=== PATIENT | female | born 1970 | race Caucasian/White ===

== ENCOUNTER 2020-02-08 08:53 | Emergency (ER) | payer OTHER, SELFPAY ==
--- NOTE | 2020-02-08 08:58 | ED.GENADULT ---
HPI - General Adult General Chief complaint: Upper Respiratory Infection Stated complaint: Ear pain,allergies Time Seen by Provider: 02/08/20 08:56 Source: patient Mode of arrival: ambulatory Limitations: no limitations History of Present Illness HPI narrative: 49-year-old female patient presents to the [facility] with complaints of right ear pain that started yesterday. Patient states that her ear is swollen shut and is very painful. Patient states she tried putting on some eardrops into the ear that she had at home but states that the eardrops would not go into the fact that the ear was very swollen. Denies any fevers, body aches or chills. Patient states she has had allergies for the past 2 weeks that she has been taking Singulair and [id number] Claritin for. Related Data Allergies Allergy/AdvReac Type Severity Reaction Status Date / Time ciprofloxacin Allergy Unknown Hives / Verified 02/08/20 09:01 Red Face Review of Systems Review of Systems: Narrative: CONSTITUTIONAL: Denies fever, chills, or sweats. EYES: Denies visual changes, redness, or discharge. ENT: Denies rhinorrhea, congestion, sore throat, positive right otalgia. CARDIOVASCULAR: Denies chest pain, palpitations, or edema. RESPIRATORY: Denies cough or dyspnea. GASTROINTESTINAL: Denies abdominal pain, nausea, vomiting, or diarrhea. GENITOURINARY: Denies dysuria or hematuria. SKIN: Denies rash or itching. MUSCULOSKELETAL: Denies back pain, joint pain, or myalgia. NEUROLOGIC: Denies headache, numbness, or weakness. PSYCHIATRIC: Denies anxiety or depression. PMFSH Past Medical History Medical History (Updated 02/08/20 @ 09:19 by JUNAID Glover) Depression Hypertension Hypothyroidism Seasonal allergies Surgical History Surgical History (Updated 02/08/20 @ 08:59 by JUNAID Glover) H/O tubal ligation Social History Social History (Updated 02/08/20 @ 08:59 by JUNAID Glover) Smoking status: Current every day smoker Comments At the time of my signature I agree with nursing past medical history, surgical, social, and family history. There is no relevant family history pertinent to the presenting complaint. Exam Narrative: Exam Narrative: GENERAL: Well-appearing, well-nourished, and in no acute distress. HEAD: Normocephalic, atraumatic. EYES: PERRLA and EOMI. ENT: Nares clear, no rhinorrhea or epistaxis. Mucous membranes moist. Left ear canal is clear with no erythema or foreign bodies in the canal. The right canal is completely swollen shut and unable to visualize the TM. There is slight swelling and tenderness to the preauricular lymph node. NECK: Supple. No lymphadenopathy CHEST: Clear to auscultation. No respiratory distress. HEART: Regular rate and rhythm. No murmur heard. Normal peripheral pulses. ABDOMEN: Soft, nontender, nondistended, normal active bowel sounds. EXTREMITIES: Normal range of motion. No edema. SKIN: Warm, dry, no rash. NEURO: No focal deficits. Alert and oriented x3. Course Vital Signs Vital signs: Vital Signs Temperature 37.0 C 02/08/20 09:00 Pulse Rate 95 02/08/20 09:00 Respiratory Rate 18 02/08/20 09:00 Blood Pressure 141/82 H 02/08/20 09:00 Pulse Oximetry 98 02/08/20 09:00 Temperature 37.0 C 02/08/20 09:00 Pulse Rate 95 02/08/20 09:00 Respiratory Rate 18 02/08/20 09:00 Blood Pressure 141/82 H 02/08/20 09:00 Pulse Oximetry 98 02/08/20 09:00 Vital signs reviewed The patient has been informed that they may have pre-hypertension or Hypertension based on a BP reading in the department. I recommend that the patient call the primary care provider listed on their discharge instructions or a physician of their choice this week to arrange follow up for further evaluation of possible pre-hypertension or Hypertension Medical Decision Making Differential Diagnosis Differential Diagnosis: Differential diagnosis: Otitis media, otitis externa, perforated TM, inf
[2020-02-08 09:00] VITALS: BP 141/82; PULSE 95; RESP 18; TEMP 37; O2SAT 98
== END 2020-02-08 09:38 | disposition home or self-care (01) ==
PROVIDERS: Emergency Provider Nurse Practitioner Family; PCP Family Medicine
DX: H60.501 Unspecified acute noninfective otitis externa, right ear (principal); F17.210 Nicotine dependence, cigarettes, uncomplicated; I10 Essential (primary) hypertension; E03.9 Hypothyroidism, unspecified
CPT/HCPCS: 99203; G0463

== ENCOUNTER 2024-09-05 12:50 | Emergency (ER) | payer OTHER, SELFPAY ==
--- OUTSIDE RECORDS SUMMARY | 2024-09-05 13:01 | XMS_ITS | Clinical Summary ---
Author Organization [facility] Address [address] [place] [address] Phone Care Team Providers Care Book Publisher Name Role Phone Jeremy Roth MD Primary Care Provider [phone] Allergies Active Allergy Reactions Criticality Noted Date Comments Ciprofloxacin Hives 02/08/2020 Medications methylPREDNISol one (MEDROL DOSPACK) 4 MG Tablet Therapy Pack See product package insert for dosing schedule 21 Tab 02/08/2020 Active HYDROcodone-juan carlos taminophen (NORCO) 5-325 MG Tablet Take 1 Tab by mouth every 6 hours as needed for Moderate or more severe pain. 15 Tab 02/08/2020 Active Social History Tobacco Use Types Packs/Day Years Used Date Smoking Tobacco: Every Day Cigarettes Smokeless Tobacco: Never Alcohol Use Standard Drinks/Week Comments Not Currently 0 (1 standard drink = 0.6 oz pur e alcohol) Comments No Sex and Gender Information Value Date Recorded Sex Assigned at Not on file Legal Sex Female 8:04 PM CDT Gender Identity Not on file Sexual Orientation Not on file Last Filed Vital Signs Vital Sign Reading Time Taken Comments Blood Pressure 145/82 02/08/2020 11:24 AM HOME HEALTH CARE CASE MANAGER Pulse 82 02/08/2020 11:24 AM HOME HEALTH CARE CASE MANAGER Temperature 37.6 C (99.7 F) 02/08/2020 10:24 AM HOME HEALTH CARE CASE MANAGER Respiratory Rate 18 02/08/2020 11:24 AM HOME HEALTH CARE CASE MANAGER Oxygen Saturation 98% 02/08/2020 11:24 AM HOME HEALTH CARE CASE MANAGER Inhaled Oxygen Concentration - - Weight 72.6 kg (160 lb) 02/08/2020 10:24 AM HOME HEALTH CARE CASE MANAGER Height 166.4 cm (5' 5.5) 02/08/2020 10:24 AM CS T Body Mass Index 26.22 02/08/2020 10:24 AM HOME HEALTH CARE CASE MANAGER Plan of Treatment Health Maintenance Due Date Last Done Comments Hepatitis C Virus (HCV) Screening 1972 TdaP Immunization 1972 Hepatitis B Immunization (1 of 3 - 19+ 3-dose series) 10/20/1991 Cologuard 2017 Colonoscopy 2017 Colorectal Cancer Screening 2017 Immunochemical Fecal Occult Blood 2017 Pneumococcal Immunization (5 0+ years) (1 of 1 - PCV) 2022 Zoster Immunization (1 of 2) 2022 SARS-COV-2 Immunization (1 - season) 2023 Influenza Immunization (Seas on Ended) 2024 Respiratory Syncytial Virus (RSV) Immunization (Adult) (1 - 1-dose 75+ series) 10/20/2047 Human Papillomavirus (HPV) Immunization Aged Out No longer eligible b ased on patient's age to complete this topic Meningococcal Immunization (ACWY) Aged Out No longer eligible based on patient's age to complete this topic Rotavirus Immunization Aged Out No lo nger eligible based on patient's age to complete this topic Care Teams Book Publisher Relationship Specialty Start Date End Date Jeremy Roth MD [address] [place] [address] PCP - General Internal Medicine 02/08/20
--- OUTSIDE RECORDS SUMMARY | 2024-09-05 13:01 | XMS_ITS | Encounter Summary ---
Author Organization [facility] Healthcare Address [address] [place] [address] Care Team Providers Care Freedom Of Information Officer Name Role Phone Jeremy Roth MD Primary Care Provider [phone] Reason for Visit * Reason Onset Date Comments Scheduling Appointments 01/16/2021 Confirmi ng mammogram appt Encounter Details Date Type Department Care Team (Late st Contact Info) Description 01/16/2021 Telephone [facility] [address] [place] [id number] Hallie Lynne RT Scheduling Appointments (Confirming mammogram appt) Social History Tobacco Use Types Packs/Day Years Used Date Smoking Tobacco: Heavy Smoker Cigarettes Smokeless Tobacco: Never Comments:Smoking History Pac ks/day: 1 Packs Alcohol Use Standard Drinks/Week Comments No 0 (1 standard drink = 0.6 oz pur e alcohol) PHQ-2 Answer Date Recorded PHQ-2 Total Score (If total score is 3 or more points, staff should administer the PHQ-9) 0 08/25/2020 Comments No Sex and Gender Information Value Date Recorded Sex Assigned at Not on file 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 Author [facility] No Liang Isabel, RN Note: Walk, do normal work, take care of home with minimal to no pain. Attend meditation or other stress management classes Lifestyle No Salima Patel MA Quit using tobacco (cigarettes, smokeless, etc) Tobacco Use No Salima Patel MA documented as of this encounter Visit Diagnoses Not on filedocumented in this encounter Additional Health Concerns Infection Onset Date Last Indicated Resolved Time COVID: Suspected 05/07/2023 05/07/2023 05/07/2023 7:49 PM [employer] DEVELOPER COVID19 05/07/2023 05/07/2023 05/17/2023 3:05 AM [employer] BI DEVELOPER COVID: Recovered Comment:Added based on recent COVID infection. 05/17/2023 05/30/2023 08/15/2023 3:05 AM CDT documented as of this encounter Care Teams Freedom Of Information Officer Relationship Specialty Start Date End Date Jeremy Roth MD [address] [place] [address] PCP - General 08/05/16 documented as of this encounter
--- OUTSIDE RECORDS SUMMARY | 2024-09-05 13:01 | XMS_ITS | Encounter Summary ---
Author Organization [facility] Healthcare Address [address] [place] [address] Care Team Providers Care Mangle Tender Cloth Name Role Phone Jeremy Roth MD Primary Care Provider [phone] Reason for Visit * Reason Onset Date Comments Anxiety 07/14/2024 Encounter Details Date Type Department Care Team (Late st Contact Info) Description 08/10/2024 Nurse Triage [facility] [address] [address] Jeremy Roth MD [address] [place] [address] Social History Tobacco Use Types Packs/Day Years Used Date Smoking Tobacco: Heavy Smoker Cigarettes Smokeless Tobacco: Never Comments:Smoking History Pac ks/day: 1 Packs Alcohol Use Standard Drinks/Week Comments No 0 (1 standard drink = 0.6 oz pur e alcohol) AUDIT-C Answer Date Recorded Q1: How often do you have a drink containing alc ohol? Never 02/27/2021 Average Number of Drinks Not on file 021 Frequency of Binge Drinking Not on file 08/2020 PHQ-2 Answer Date Recorded PHQ-2 Total Score (If total score is 3 or more points, staff should administer the PHQ-9) 0 02/17/2024 Personal Safety Answer Date Recorded Have you ever been in or are you currently in a harmful physical or emotional relationship or is someone making you feel afraid or unsafe? 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 Thanks * Telephone Encounter - Johanny Kauffman RN - 08/10/2024 11:28 AM CDT Reason for Conversation Anxiety Background Aortic Valve Stenosis, HTN and Anxiety Disposition See Within 3 Days in Office Reason for Disposition MODERATE anxiety (e.g., persistent or frequent anxiety symptoms; interferes with sleep, school, or work) Protocols Used Anxiety and Panic [id number] Pt is a 53 y.o female calling with increased anxiety x 1 month that is worsening. Pt reports increased palpitations and SOB. Denies chest pain. Pt states she has Aortic Valve Stenosis and had a recent Echo and was told she will need a cardiac cath and surgery. Pt states she is worried and overwhelmed waiting to get appts scheduled. Pt states she is also trying to stop smoking. Pt declines appt and is requesting Ativan. Please contact pt at [phone]. Please call Rx to [phone]. Care advice given including utilizing healthy coping skills, increased fluids, healthy diet and adequate sleep. Pt verbalized understanding and will call with worsening sx's. * Telephone Encounter - Johanny Kauffman RN - 08/10/2024 11:18 AM CDT Regarding: anxiety with difficulty breathing with sob ----- Message from Janette Linares sent at 08/10/2024 11:18 AM CDT ----- Symptom Based Call Chief Complaint(s): anxiety with difficulty breathing with sob Duration: last month What type of symptom(s) is the patient experiencing? Red Flag. Is the patient concerned they are experiencing a medical emergency requiring an ambulance? No Additional Comments: Pt called and stated that she in having anxiety and experiencing difficulty breathing. Pt stated that she was given atavan at the hospital and this helped. Pt stated that she is stressed regarding needs for surgery Does message need to be routed? Yes-Action Needed documented in this encounter Plan of Treatment Not on file documented as of this encounter Goals Goal Patient Goal Type Associated Problems Recent Progress Patient-Stated? Author [facility] No Liang Isabel, YUMIKO Note: Walk, do normal work, take care of home with minimal to no pain. Attend meditation or other stress management classes Lifestyle No Salima Patel MA Quit using tobacco (cigarettes, smokeless, etc) Tobacco Use No Salima Patel MA documented as of this encounter Visit Diagnoses Not on filedocumented in this encounter Care Teams Mangle Tender Cloth Relationship Specialty Start Date End Date Jeremy Roth MD [address] [place] [address] PCP - General 08/05/16 documented as of this encounter
--- OUTSIDE RECORDS SUMMARY | 2024-09-05 13:01 | XMS_ITS | Clinical Summary ---
Author Organization [facility] Address [address] [place] [id number] Care Team Providers Care Cook Pie Name Role Phone Jeremy Roth MD Primary Care Provider [phone] Allergies Active Allergy Reactions Criticality Noted Date Comments Ciprofloxacin Itching,Hives High Reaction: Itching, , Reaction: Itching, , Reaction: Itching, , Reaction: hives, , Lisinopril Cough Low 05/13/2019 Medications multivit-min/ir on/folic/lutein (CENTRUM SILVER WOMEN ORAL) Take by mouth Active valACYclovir (VALTREX) 1 gram tablet TAKE TWO (2) TABS (2000 MG) TWO (2) TIMES a DAYS FOR 1 DAY. 4 tablet 5 12/11/19 24 Active atorvastatin (LIPITOR) 40 mg tablet Take 1 tablet (40 mg total) by mouth daily 90 tablet 4 02/17/20 24 025 Active busPIRone (BUSPAR) 10 mg tabletIndicatio ns:Generalized Anxiety Disorder Take 1 tablet (10 mg total) by mouth 3 (three) times a day 90 tablet 11 06/02/19 25 026 Active amLODIPine (NORVASC) 5 mg tablet Take 1 tablet (5 mg total) by mouth daily 90 tablet 4 06/02/19 25 026 Active ezetimibe (ZETIA) 10 mg tablet TAKE 1 TABLET (10 MG TOTAL) BY MOUTH DAILY 30 tablet 3 06/18/[address] (PROTONIX) 40 mg EC tablet Take 1 tablet (40 mg total) by mouth daily 30 tablet 07/15/19 25 026 Active albuterol HFA (PROVENTIL HFA,VENTOLIN HFA,PROAIR HFA) 90 mcg/actuation inhaler Inhale 2 puffs every 6 (six) hours as needed for wheezing 3 each 4 07/17/19 25 026 Active hydrOXYzine (ATARAX) 25 mg tablet Take 1 tablet (25 mg total) by mouth 2 (two) times a day as needed for anxiety 30 tablet 4 07/17/19 25 Active clonazePAM (KlonoPIN) 0.5 mg tablet Take 1 tablet (0.5 mg total) by mouth 2 (two) times a day as needed for anxiety 30 tablet 08/11/19 25 Active levothyroxine (SYNTHROID) 88 mcg tabletIndicatio ns:Hypothyroidi sm, unspecified type TAKE ONE (1) TABLET (88 MCG TOTAL) BY MOUTH DAILY 90 tablet 08/19/19 25 Active montelukast (SINGULAIR) 10 mg tabletIndicatio ns:Non-seasonal allergic rhinitis, unspecified trigger TAKE ONE (1) TABLET (10 MG TOTAL) BY MOUTH DAILY 90 tablet 08/26/19 25 Active nicotine (NICODERM CQ) [address] 1 patch on the skin daily for 24 hours 15 patch 09/01/19 25 025 Active levothyroxine (SYNTHROID) 88 mcg tabletIndicatio ns:Hypothyroidi sm, unspecified type TAKE ONE (1) TABLET (88 MCG TOTAL) BY MOUTH DAILY 90 tablet 05/30/19 25 025 Discontinued montelukast (SINGULAIR) 10 mg tabletIndicatio ns:Non-seasonal allergic rhinitis, unspecified trigger TAKE ONE (1) TABLET (10 MG TOTAL) BY MOUTH DAILY 90 tablet 06/02/19 25 025 Discontinued nicotine (NICODERM CQ) [address] 1 patch on the skin daily for 24 hours 28 patch 1 08/12/19 25 025 Discontinued(Th erapy completed) Active Problems Problem Noted Date Diagnosed Date Colon cancer screening 02/17/2024 Assessment & Plan (02/17/2024 10:56 AM DIGITAL PRODUCTION MANAGER): Encourage colon cancer screneing. WIll montior ersponse. Contusion of right thumb without damage to nail 02/17/2024 Assessment & Plan (02/17/2024 10:57 AM DIGITAL PRODUCTION MANAGER): Has seen Dr. Greer's team at [facility] for trigger finger on right hand. Now with sypmtoms related to base of thumb and would benefit from re-engaging with [facility] Escalante and Dr. Greer. WIll monitor response. Hyperlipidemia 02/17/2024 Assessment & Plan (02/17/2024 10:58 AM DIGITAL PRODUCTION MANAGER): Stable on statin therapy and will continue to follow response. Reduce atorvastatin and intoduce zetia and will montior respnose. Annual physical exam 02/17/2024 Assessment & Plan (02/17/2024 10:59 AM DIGITAL PRODUCTION MANAGER): Focus of exam is prevnetative in nature. Reviweed immunizations, reivewed sun/skin cancer screneing. Reivewed colon/breast cancer screening. Continue to offer assistance with move forward and will monitor respnose. Insomnia secondary to chronic pain 07/13/2020 Chronic left-sided low back pain with bilateral sciatica 07/13/2020 Thoracic radiculopathy 06/23/2020 Thoracic degenerative disc disease 06/15/2020 Degenerative disc disease, cervical 06/15/2020 Chronic midline thoracic back pain 05/18/2020 Lumbar facet joint syndrome 04/01/2020 Degenerative lumbar spinal stenosis 04/01/2020 DDD (degenerative disc disease), lumbar 04/01/19 Acute left-sided low back pain with left-sided s ciatica 04/01/2020 Lumbar radiculopathy 11/20/2019 Assessment & Plan (11/20/2019 5:53 PM CDT): Reviewed recent xrays again w/Mrs Gee. Worsening Lumbar/SI joint pain into LLE. Now reporting urinary incontinence & LLE paresthesia. MRI L spine ordered. Would like to have done at [facility]. Aware that insurance needs to authorize prior to her scheduling. msg to commissioned fire officerYUMIKO Alfredo re: need for MRI auth. Cosmo aware that Sayda RN will call her. Encouraged otc tylenol/ibuprofen prn back pain. Discussed ice, gentle ROM, increased activity/core strengthening & other non pharm methods of pain relief. Denies bowel but +bladder dysfunction. Denies cauda equina. Reviewed red flags. Encounter for well woman candace arora with routine gynecological exam 10/22/2019 Assessment & Plan (10/22/2019 3:23 PM CDT): WWE: pap & breast exam completed today. Will call w/pap results when received. Instructed in SBE. to perform monthly in shower; preferably after menses. Aware that she may have some blood tinged discharge with wiping today after pap. Mixed hyperlipidemia 05/13/2019 Assessment & Plan (10/22/2019 4:03 PM CDT): We will check labs and make adjustments to medications as needed. Patient should focus on limiting bad fats in the diet and using exercise as a way to improve the lipid status. Secondary prevention. Reviewed medications. Lipid panel ordered; will call w/results when rec'd. Denies any statin Ses. Reviewed diet/exercise recommendations. Reviewed red flags. Assessment & Plan (05/13/2019 2:58 PM DIGITAL PRODUCTION MANAGER): Will go to lab today even though not fasting for repeat lipid. Last lipid panel: 02/06/19 DQ=896 FI=407 HDL=31 NIB=608 TC/HDL=10 02/08/17 started atorvastatin 40mg daily. Acute non-recurrent pansinusitis 05/12/2019 Assessment & Plan (07/16/2024 9:35 AM CDT): Suggested switch to Zyrtec and Flonase for better control. Neti pot recommended for sinus clearance. -Will send Medrol Dosepak for possible bronchitis as well. -Continue albuterol p.r.n. -Antibiotics E scribed to start if not improving with above treatments in the next few days. Assessment & Plan (05/13/2019 2:54 PM DIGITAL PRODUCTION MANAGER): To start antihistamine & plain mucinex. Complete abx sent. Reviewed abx Ses & scheduling. Aware to complete full course. To continue mucinex/sinus otc medications. Antihistamines (zyrtec, tho, claritin, benadryl) for runny nose Discussed nasal saline rinses/neti pots. Push fluids. Reviewed red flags; what would warrant rtc. Hypertension, essential 05/12/2019 Assessment & Plan (07/16/2024 9:36 AM CDT): Stable. Continue amlodipine. Assessment & Plan (02/17/2024 10:56 AM DIGITAL PRODUCTION MANAGER): Stable on amlodipine and will follow response. Assessment & Plan (10/22/2019 4:03 PM CDT): The blood pressure is under good control. Ideally it should be under 130/80. Continue medications without adjustment. Continue efforts to eat well (4-5 fruits and veggies) daily and exercise for about 30 min nearly every day. Watch salt intake, keeping to less than 2000mg per day. Limit alcohol. Include strategies to cope with stress. Labs ordered today; will contact w/results once received. Assessment & Plan (05/13/2019 2:56 PM DIGITAL PRODUCTION MANAGER): Blood Pressure Follow-up: Lifestyle modifications education provided on sodium reduction, increase physical activity and caffeine/espresso intake.. Resumed losartan 50mg daily. Has BP cuff at home. She will check daily & log. To rtc in 1-2 weeks for repeat BP check here. Will bring in her log at that time. Reviewed BP goals: less than 140/90. Reviewed red flags; what would warrant rtc/call if BP not responding to losartan. Refused influenza vaccine 04/07/2018 Assessment & Plan (11/20/2019 5:51 PM CDT): Discussed and the patient refuses immunization today. Educated regarding the need to vaccinate for personal protection and to limit the viruses in the community to protect those most vulnerable. Assessment & Plan (01/15/2019 9:25 AM CDT): Discussed and the patient refuses immunization today. Educated regarding the need to vaccinate for personal protection and to limit the viruses in the community to protect those most vulnerable. Anxiety and depression 12/02/2017 Assessment & Plan (07/16/2024 9:36 AM CDT): Continue BuSpar. Will send in hydroxyzine to use p.r.n.. Will monitor response. Assessment & Plan (05/13/2019 2:53 PM DIGITAL PRODUCTION MANAGER): Continues on venlafaxine 225mg daily. Has increased buspar to 10mg tid for anxiety. Cannot tolerate hydroxyzine (makes her fall asleep) Reports fair control of anxiety w/current regimen. No changes to be made at this time. Reviewed med Ses & scheduling. Reviewed red flags. Assessment & Plan (01/15/2019 9:59 AM CDT): Increased buspar from 7.5mg tid to 10mg bid. Recent health issues w/brother have her upset at times. Doing well w/son & . No other changes. Reports good control of anixety/depression w/current regimen. Reviewed med Ses & scheduling. Reviewed red flags. Assessment & Plan (10/14/2018 10:06 AM CDT): Much improvement noted with addition of buspar. Is currently taking tid. States that this is the best she's felt in years. No changes at this time. Reports good control of anxiety w/current regimen. buspar 7.5mg refill sent. Reviewed med Ses & scheduling. Reviewed red flags. To make f/u appt in 3 mos. Assessment & Plan (09/05/2018 10:33 AM CDT): Discussed [facility] to get out of her house. She has spoken w/ex-; their son can cme live w/him whenever he needs to. Has safety plan. Will discuss counseling w/ but aware that she needs to go even w/o . Will continue venlafaxine 225mg daily & add buspar 7.5mg bid. Aware that it can be tid but will start bid initially. Will start 1 tab at HS for 3-4 days & then increase to bid. To make f/u appt in 5-6 weeks. Reviewed red flags. Environmental and seasonal allergies 08/27/2016 Hypothyroidism 08/08/2013 Overview (06/29/2016): HYPOTHYROIDISM NOS Assessment & Plan (02/17/2024 10:56 AM DIGITAL PRODUCTION MANAGER): Clinically euthyroid. Continue to montior TFTs and will montior response. Assessment & Plan (01/15/2019 9:58 AM CDT): Have not had labs in 1+ years. TSH/T4 ordered; will call w/results when rec'd. Reviewed med Ses & scheduling. Reviewed sxs hypo/hyperthyroidism. No changes at this time. Tobacco dependence syndrome 08/08/2013 Overview (06/29/2016): TOBACCO USE DISORDER Assessment & Plan (07/16/2024 9:36 AM CDT): Highly encouraged cessation. Assessment & Plan (02/17/2024 10:57 AM DIGITAL PRODUCTION MANAGER): PRecontemplative. Discussed LDCT lung cancer screening and declines. Assessment & Plan (11/20/2019 5:51 PM CDT): Precontemplative. Encouraged complete smoking cessation. Discussed different types of medications & psoe-jcs-jlqembg aides to help with cessation. Assessment & Plan (10/22/2019 4:04 PM CDT): Precontemplative. Encouraged complete smoking cessation. Discussed different types of medications & yqxj-pyo-bqwrdns aides to help with cessation. Assessment & Plan (05/13/2019 2:52 PM DIGITAL PRODUCTION MANAGER): Precontemplative. Encouraged complete smoking cessation. Discussed different types of medications & cvcf-men-zyuhpav aides to help with cessation. Assessment & Plan (01/15/2019 9:25 AM CDT): Precontemplative. Encouraged complete smoking cessation. Discussed different types of medications & xwkb-dwk-ysrdlpn aides to help with cessation. Assessment & Plan (10/14/2018 10:04 AM CDT): Precontemplative. Encouraged complete smoking cessation. Discussed different types of medications & ohiq-cow-xxtvigy aides to help with cessation. Assessment & Plan (09/05/2018 10:08 AM CDT): Tobacco use is unchanged. Smoking cessation counseling was provided. Tobacco use will be reassessed 5-6 weeks. Precontemplative. Encouraged complete smoking cessation. Discussed different types of medications & hufb-man-opmvxdg aides to help with cessation. Aortic valve disorder 08/08/2013 Overview (06/29/2016): AORTIC VALVE DISORDER Assessment & Plan (07/16/2024 9:35 AM CDT): Clinically stable. She is following with Cardiology. Red flags reviewed. Assessment & Plan (02/17/2024 10:57 AM DIGITAL PRODUCTION MANAGER): COntinue surveillance with cardiology and will montior response. Heart murmur 08/26/2012 Overview (06/29/2016): Murmur, heart Resolved Problems Problem Noted Date Diagnosed Date Resolved Date Sacroiliitis 04/01/2020 02/17/2024 BMI 26.0-26.9,adult 11/20/2019 01/23/20 22 Assessment & Plan (11/20/2019 5:53 PM CDT): Discussed healthy diet and importance of regular physical activity. BMI is acceptable for this patient. BMI 27.0-27.9,adult 10/22/2019 11/20/19 20 Assessment & Plan (10/22/2019 4:03 PM CDT): Discussed healthy diet and importance of regular physical activity. BMI is acceptable for this patient. BMI 26.0-26.9,adult 05/12/2019 10/22/19 20 Assessment & Plan (05/13/2019 2:53 PM DIGITAL PRODUCTION MANAGER): Has lost 10# d/t stress. Discussed healthy diet and importance of regular physical activity. BMI is acceptable for this patient. Flu-like symptoms 05/12/2019 01/22/2022 Assessment & Plan (05/13/2019 2:54 PM DIGITAL PRODUCTION MANAGER): NEGATIVE flu a/b swab in office. Encounter for screening for lipoid disorders 9 05/13/2019 BMI 27.0-27.9,adult 09/05/2018 05/12/19 Assessment & Plan (01/15/2019 9:26 AM CDT): Discussed healthy diet and importance of regular physical activity. Assessment & Plan (09/05/2018 10:09 AM CDT): BMI is acceptable for this patient. Ear infection 08/27/2016 05/13/2019 Acute diffuse otitis externa of both ears 08/27/2016 05/13/2019 Encounters Date Type Department Care Team Description 09/03/2024 10:30 AM CDT Office Visit [facility] at [address] [place] [phone] Xavier Cancino MD Aortic valve disorder (Primary Dx); Paroxysmal atrial fibrillation (HCC) 08/31/2024 Orders Only [facility] [address] [phone] Jeremy Roth MD 08/11/2024 Orders Only [facility] Primary Care at [address] [phone] Jeremy Roth MD 08/11/2024 Telephone [facility] at [address] [place] [phone] Freda Kennedy MA 08/10/2024 Telephone [facility] at [address] [place] [phone] Pola Enrique MA 08/10/2024 Orders Only [facility] [address] [phone] Jeremy Roth MD 08/10/2024 Nurse Triage [facility] [address] [phone] Jeremy Roth MD 08/05/2024 Results Follow-Up [facility] [address] [place] [phone] Xavier Cancino MD Transthoracic Echo (TTE) Complete W Doppler/CF 08/03/2024 10:00 AM CDT Ancillary Procedure [facility] [address] [place] [phone] Aortic valvular disorder 07/16/2024 8:30 AM CDT Office Visit [facility] [address] [phone] Shelly Bennett NP Acute non-recurrent pansinusitis (Primary Dx); Tobacco dependence syndrome; Hypertension, essential; Anxiety and depression; Aortic valve disorder 07/14/2024 7:06 PM CDT - 07/14/2024 9:55 PM CDT Emergency [facility] Emergency Department [address] [place] [address] Chele Askew MD Esophagitis (Primary Dx); Anxiety Discharge Disposition: Discharge to home or self care 06/16/2024 10:20 AM CDT Office Visit [facility] [address] [place] [address] Ele Méndez MD Encounter for gynecological examination without abnormal finding (Primary Dx) 06/15/2024 9:36 AM CDT - 06/15/2024 11:59 PM CDT Hospital Encounter [facility] [address] [place] [address] Screening mammogram, encounter for Discharge Disposition: Discharge to home or self care from Last 3 Months Immunizations Immunization Administration Dates Next Due Influenza, Split 04/20/2013 Influenza, Unspecified 02/04/2023(Deferr ed: Patient Refused),01/22/2022(Deferred: Patient Refused),11/23/2021(Deferred: Patient Refused),12/23/2020(Deferred: Patient Refused),08/25/2020(Deferred: Patient Refused),01/14/2020(Deferred: Patient Refused),01/07/2020(Deferred: Patient Refused),05/12/2019(Deferred: Patient Refused),03/25/2019(Deferred: Patient Refused),03/25/2019(Deferred: Patient Refused),01/15/2019(Deferred: Patient Refused),10/14/2018(Deferred: Patient Refused),09/05/2018(Deferred: Patient Refused),04/08/2018(Deferred: Patient Refused),04/07/2018(Deferred: Patient Refused),04/07/2018(Deferred: Patient Refused),03/25/2018(Deferred: Patient Refused),11/25/2017(Deferred: Patient Refused),06/05/2017(Deferred: Patient Refused),04/01/2017(Deferred: Patient Refused),03/26/2017(Deferred: Patient Refused),03/25/2017(Deferred: Patient Refused),03/25/2017(Deferred: Patient Refused),03/25/2017(Deferred: Patient Refused),03/25/2017(Deferred: Patient Refused),03/26/2016(Deferred: Patient Refused) Surgical History Surgery Date Site/Laterality Comments TOE SURGERY 03/25/1983 - 03/24/1984 Toe problem: toe surgery TOE SURGERY 03/25/2017 - 03/24/2018 SALPINGECTOMY 03/25/2011 - 03/24/2012 Sterilization: BTL by bilateral salpingectomy TUBAL LIGATION 2011 Medical History Medical History Date Comments Hypothyroidism hypothyroidism Hx Other Medical Leaking valves; Patient see's MD and patient has no symptoms Depression Depression Hypertension Hypertension Hx Other Medical Hypothyroidism, primary Hypercholesterolemia High choles terol Hx Other Medical Aortic insuffic iency; patient denies this diagnosis 07/15/18 Smoking Murmur Arthritis Anxiety Low back pain Family History Medical History Relation Name Comments Diabetes Brother Dementia Father Coronary artery disease Mother Pati Stroke Mother Pati cause of Diabetes Sister 1 Reva Mitral valve prolapse Sister 2 Breast cancer Neg Hx Ovarian cancer Neg Hx Thyroid cancer Neg Hx Relation Name Status Comments Brother Father Mother Pati (Age 51) Sister 1 Reva Sister 2 Social History Tobacco Use Types Packs/Day Years Used Date Smoking Tobacco: Heavy Smoker Cigarettes Smokeless Tobacco: Never Tobacco Cessation:Ready to Q uit: Not Asked; Counseling Given: Not Answered Comments:Smoking History Packs/day: 1 Packs Alcohol Use Standard Drinks/Week Comments [...] on file Legal Sex Female 12:40 PM DIGITAL PRODUCTION MANAGER Gender Identity Not on file Sexual Orientation Not on file Obstetrics History Para Term AB IAB SAB Ectopic Multiple Livin g Live Births 2 1 1 0 1 1 1 Date Outcome GA Total Labor Labor/2nd/3rd Weight Sex Type Anes PTL Magui A1 A5 Name Clin AB 1999 Term 2.381 kg (5 lb 4 oz) M Vag-S pont Living Last Filed Vital Signs Vital Sign Reading Time Taken Comments Blood Pressure 118/58 09/03/2024 10:47 AM CDT Pulse 61 09/03/2024 10:47 AM CDT Temperature 36.8 C (98.3 F) 07/16/2024 8:21 AM CDT Respiratory Rate 16 09/03/2024 10:47 AM CDT Oxygen Saturation 99% 07/16/2024 8:21 AM CDT Inhaled Oxygen Concentration - - Weight 67.6 kg (149 lb 1.6 oz) 09/03/2024 10:47 AM CDT Height 172.7 cm (5' 8) 09/03/2024 10:47 AM CDT Body Mass Index 22.67 09/03/2024 10:47 AM CDT Plan of Treatment Health Maintenance Due Date Last Done Comments Colon Cancer Screening-Colonoscopy 1970 Hepatitis C Screening 1970 DTaP/Tdap/Td Vaccine (1 - Tdap) 10/20/1983 Hepatitis B Screening 1990 Pneumococcal vaccine <65 (1 of 2 - PCV) 10/20/1991 Zoster Vaccine (1 of 2) 2022 Cervical Cancer Screening 04/05/20232022, 02/27/2021, 04/07/2018, Additional history exists Influenza Vaccine (Season Ended) 2024 04/20/19 14 Depression Screening 02/16/2025 02/17/2024, 02/04/2023, 01/22/2022, Additional history exists Breast Cancer Screening-Mammogram 06/15/2025 06/15/2024, 04/01/2023, 03/30/2022, Additional history exists Regular Well Visit/Exam 18-64 06/16/2025, 02/17/2024, 04/10/2023, Additional history exists Goals Goal Patient Goal Type Associated Problems Recent Progress Patient-Stated? Author [facility] Liang Price, RN Note: Walk, do normal work, take care of home with minimal to no pain. Attend meditation or other stress management classes Lifestyle No Salima Patel MA Quit using tobacco (cigarettes, smokeless, etc) Tobacco Use No Salima Patel MA Procedures Procedure Name Priority Date/Time Associated Diagnosis Comments TRANSTHORACIC ECHO (TTE) COMPLETE W DOPPLER/CF WO CONTRAST Routine 08/03/2024 11:36 AM CDT Aortic valvular disorder TROPONIN T HIGH-SENSITIVITY SERIES (BASELINE, 2HR, 4HR, 6HR) STAT 07/14/2024 8:49 PM CDT EGFR STAT 07/14/2024 7:29 PM CDT TROPONIN T HIGH-SENSITIVITY SERIES (BASELINE, 2HR, 4HR, 6HR) STAT 07/14/2024 7:29 PM CDT COMPREHENSIVE METABOLIC PANEL STAT 07/14/2024 7:29 PM CDT XR CHEST 1 VIEW ED 07/14/2024 5:14 PM CDT DIFFERENTIAL AUTO STAT 07/14/2024 5:0 9 PM CDT CBC WITH AUTO DIFFERENTIAL STAT 07/14/2024 5:09 PM CDT ECG 12-LEAD STAT 07/14/2024 5:01 PM CDT SCREENING MAMMOGRAM BILATERAL W ANUJ Schedule Routine, Read Routine (OP Routine) 06/15/2024 9:49 AM CDT Screening mammogram, encounter for PAP AND HIGH RISK HPV, REFLEX TO GENOTYPING Routine 04/05/2022 9:16 AM DIGITAL PRODUCTION MANAGER Screening for malignant neoplasm of the cervix Papanicolaou smear of cervix with atypical squamous cells of undetermined significance (ASC-US) from Last 3 Months or Most Recently Relevant to Health Maintenance Results * TRANSTHORACIC ECHO (TTE) COMPLETE W DOPPLER/CF WO CONTRAST (08/03/2024 11:36 AM CDT) EF Mod BP 57 % CONS SCIMAGE Anatomical Region Laterality Modality Ultrasound 08/03/2024 10:1 4 AM CDT Narrative 08/03/2024 4:22 PM CDT [facility] [address] [place] [address] Echocardiogram Report Patient Name: COSMO GEE M : 1970 Study Date: 08/03/2024 10:14:49 AM Gender: F Tech: AG Ref Provider: KATHARINEPATOANNETTAVERONICA Height(Cm): 166.4 BSA: Weight(Kg): 66 Heart Rate: 65 BP: 134/84 Quality: Good Order Provider: KATHARINEXAVIER PROCEDURES: Echocardiographic Report: Transthoracic echocardiogram with complete 2D, M-Mode, and color Doppler examination. INDICATIONS: Hypertension, Murmur, and I35.9 Nonrheumatic aortic valve disorder, unspecified. MEASUREMENTS: 2D/MM Value Range Doppler Value Range EF Teich 2D 57.2 percent [ 54.0 - 74.0 ] TIANNA Vmax 0.85 cm2 EF Mod BP 57 % [ 54 - 74 ] AV Mean PG 33 mmHg LVIDd 2D 4.80 cm [ 3.80 - 5.20 ] AV Peak Gurinder 3.59 m/s [ 1.00 - 1.70 ] LVIDs 2D 3.36 cm [ 2.20 - 3.50 ] AV VTI 83.18 cm LVPWd 2D 0.68 cm [ 0.60 - 0.90 ] LVOT Diam 1.96 cm IVSd 2D 1.10 cm [ 0.60 - 0.90 ] LVOT Peak Gurinder 1.02 m/s [ 0.70 - 1.10 ] LA Dimension MM 3.22 cm [ 2.70 - 3.80 ] LVOT VTI 26.03 cm AoR Diam MM 2.89 cm [ 2.70 - 3.70 ] MV E Peak Gurinder 1.04 m/s [ 0.60 - 1.30 ] ACS MM 1.41 cm MV A Peak Gurinder 1.20 m/s [ 1.00 - 1.20 ] MV Mean PG 3 mmHg MV PHT 82 msec [ 20 - 100 ] MVA PHT 2.70 cm2 MV Decel Time 200 msec [ 104 - 258 ] PV Peak Gurinder 0.78 m/s [ 0.40 - 0.80 ] TR Peak Gurinder 2.73 m/s [ 1.00 - 2.80 ] TR Peak PG 30 mmHg 2D/MM Value Range Doppler Value Range - FINDINGS: Atrial Septum: Normal atrial septum. Left Ventricle: Normal left ventricular size. Normal left ventricular systolic function with no focal wall motion abnormalities. Impaired diastolic relaxation Grade I. Ejection fraction is measured at 57 %. Global Strain = - 15.0%. Left Atrium: The left atrium is normal in size. Right Ventricle: Normal right ventricular size. Normal right ventricular systolic function. Right Atrium: The right atrium is normal in size. Aortic Valve: Aortic cusps appear mildly calcified. Moderate to severe aortic stenosis. Mild aortic valve regurgitation. Peak velocity AOV of 3.6 m/sec. Mean gradient of 33.0 mmHg. Valve area of 0.85 cm2. Mitral Valve: Normal structure of the mitral valve. Mild mitral valve regurgitation. Pulmonic Valve: Normal structure of the pulmonic valve. Tricuspid Valve: Normal structure of the tricuspid valve. Normal right ventricular systolic pressure. Mild tricuspid regurgitation. Pericardium: Normal pericardium with no significant pericardial effusion. Aorta: Normal aortic root. IVC: Normal size and normal respiratory collapse consistent with normal right atrial pressure (<5 mmHg). Pulmonary Artery: Normal pulmonary artery size. CONCLUSIONS: Normal left ventricular size. Normal left ventricular systolic function with no focal wall motion abnormalities. Impaired diastolic relaxation Grade I. Ejection fraction is measured at 57 %. Global Strain = - 15.0%. Normal structure of the mitral valve. Mild mitral valve regurgitation. Aortic cusps appear mildly calcified. Moderate to severe aortic stenosis. Mild aortic valve regurgitation. Peak velocity AOV of 3.6 m/sec. Mean gradient of 33.0 mmHg. Valve area of 0.85 cm2. Normal structure of the tricuspid valve. Normal right ventricular systolic pressure. Mild tricuspid regurgitation. Electronically Signed By: Jorge Pearl MD, [facility] 08/03/2024 4:22:04 PM CDT Procedure Note Jorge Pearl MD - 08/03/2024 [place] [employer]- [facility] [id number] [address] [place] [address] Echocardiogram Report Patient Name: COSMO GEE Sarina : 1970 Study Date: 08/03/2024 10:14:49 AM Gender: F Tech: AG Ref Provider: XAVIER CANCINO Height(Cm): 166.4 BSA: Weight(Kg): 66 Heart Rate: 65 BP: 134/84 Quality: Good Order Provider: XAVIER CANCINO PROCEDURES: Echocardiographic Report: Transthoracic echocardiogram with complete 2D, M-Mode, and color Dopplerexamination. INDICATIONS: Hypertension, Murmur, and I35.9 Nonrheumatic aortic valve disorder,unspecified. MEASUREMENTS: 2D/MM Value Range DopplerValue Range EF Teich 2D 57.2 percent [ 54.0 - 74.0 ] TIANNA Vmax0.85 cm2 EF Mod BP 57 % [ 54 - 74 ] AV Mean PG 33mmHg LVIDd 2D 4.80 cm [ 3.80 - 5.20 ] AV Peak Vel3.59 m/s [ 1.00 - 1.70 ] LVIDs 2D 3.36 cm [ 2.20 - 3.50 ] AV VTI83.18 cm LVPWd 2D 0.68 cm [ 0.60 - 0.90 ] LVOT Diam1.96 cm IVSd 2D 1.10 cm [ 0.60 - 0.90 ] LVOT Peak Vel1.02 m/s [ 0.70 - 1.10 ] LA Dimension MM 3.22 cm [ 2.70 - 3.80 ] LVOT VTI26.03 cm AoR Diam MM 2.89 cm [ 2.70 - 3.70 ] MV E Peak Vel1.04 m/s [ 0.60 - 1.30 ] ACS MM 1.41 cm MV A Peak Vel1.20 m/s [ 1.00 - 1.20 ] MV Mean PG 3 mmHg MV PHT 82 msec [ 20 - 100 ] MVA PHT 2.70 cm2 MV Decel Time 200 msec [ 104 - 258 ] PV Peak Gurinder 0.78 m/s [ 0.40 - 0.80 ] TR Peak Gurinder 2.73 m/s [ 1.00 - 2.80 ] TR Peak PG 30 mmHg 2D/MM Value Range DopplerValue Range - FINDINGS: Atrial Septum: Normal atrial septum. Left Ventricle: Normal left ventricular size. Normal left ventricular systolic functionwith no focal wall motion abnormalities. Impaired diastolic relaxation Grade I. Ejectionfraction is measured at 57 %. Global Strain = - 15.0%. Left Atrium: The left atrium is normal in size. Right Ventricle: Normal right ventricular size. Normal right ventricular systolicfunction. Right Atrium: The right atrium is normal in size. Aortic Valve: Aortic cusps appear mildly calcified. Moderate to severe aortic stenosis.Mild aortic valve regurgitation. Peak velocity AOV of 3.6 m/sec. Mean gradient of 33.0mmHg. Valve area of 0.85 cm2. Mitral Valve: Normal structure of the mitral valve. Mild mitral valve regurgitation. Pulmonic Valve: Normal structure of the pulmonic valve. Tricuspid Valve: Normal structure of the tricuspid valve. Normal right ventricular systolicpressure. Mild tricuspid regurgitation. Pericardium: Normal pericardium with no significant pericardial effusion. Aorta: Normal aortic root. IVC: Normal size and normal respiratory collapse consistent with normal rightatrial pressure (<5 mmHg). Pulmonary Artery: Normal pulmonary artery size. CONCLUSIONS: Normal left ventricular size. Normal left ventricular systolic functionwith no focal wall motion abnormalities. Impaired diastolic relaxation Grade I. Ejectionfraction is measured at 57 %. Global Strain = - 15.0%. Normal structure of the mitral valve. Mild mitral valve regurgitation. Aortic cusps appear mildly calcified. Moderate to severe aortic stenosis.Mild aortic valve regurgitation. Peak velocity AOV of 3.6 m/sec. Mean gradient of 33.0mmHg. Valve area of 0.85 cm2. Normal structure of the tricuspid valve. Normal right ventricular systolicpressure. Mild tricuspid regurgitation. Electronically Signed By: Jorge Pearl MD, [facility] 08/03/2024 4:22:04 PM CDT us Xavier Cancino MD CV ECHO PROCEDURES Fin al Result * Troponin T high-sensitivity series (baseline, 2hr, 4hr, 6hr) (07/14/2024 8:49 PM CDT) Trop T hs <6 <=14 ng/L Comment: Interpretive Data For further hscTnT resources including the diagnostic algorithm and an aid in interpretation, copy and paste this link: [email or web address] Current Interpretive Data last revised 2020. Blood 07/14/2024 8:49 PM CDT 07/14/2024 9:15 PM CDT Chele Askew MD LAB BLOOD ORDERABLES Final R esult Performing Organization Address [facility]/ZIP Co de Phone Number [facility] [place]) [address] [place] [address] [employer] [place], [place] [id number] * Troponin T high-sensitivity series (baseline, 2hr, 4hr, 6hr) (07/14/2024 7:29 PM CDT) Trop T hs See Comment <=14 Comment: cannot perform test due to hemolysis Interpretive Data For further hscTnT resources including the diagnostic algorithm and an aid in interpretation, copy and paste this link: [email or web address] Current Interpretive Data last revised 2020. Blood 07/14/2024 7:29 PM CDT 07/14/2024 7:41 PM CDT Chele Askew MD LAB BLOOD ORDERABLES Final R esult [facility] ([place]) [address] [facility] [place] [address] * eGFR (07/14/2024 7:29 PM CDT) Pathologist [facility] eGFR >90 >=60 mL/min/1. 73 m2 Comment: Interpretive Data Reference Interval Normal >/= 90 mL/min/1.73m2 Mildly decreased* 60 - 89 mL/min/1.73m2 Mildly to moderately decreased 45 - 59 mL/min/1.73m2 Moderately to severely decreased 30 - 44 mL/min/1.73m2 Severely decreased 15 - 29 mL/min/1.73m2 Kidney Failure < 15 mL/min/1.73m2 *Relative to young adult level Estimated glomerular filtration rate is determined by the 2020 CKD-EPI equation recommended by the National Kidney Foundation (A Unifying Approach to GFR Estimation: Recommendations of the NKF-ASK Task Force on Reassessing the Inclusion of Race in Diagnosing Kidney Disease, JASN 2020). The CKD-EPI equation should not be used for patients with unstable renal function and has not been validated in children and those over 70. Current interpretive data was last reviewed 2021. Blood 07/14/2024 7:29 PM CDT 07/14/2024 7:41 PM CDT Chele Askew MD LAB BLOOD ORDERABLES Final R esult [facility] ([place]) [address] [facility] [place] [address] * Comprehensive metabolic panel (07/14/2024 7:29 PM CDT) Sodium 138 135 - 145 mmol/L Potassium, pl 4.3 3.3 - 4.9 mmol/L [facility] ([place]) Comment:Moderately Hemolyzed Specimen. Results may be affected. Chloride 103 97 - 110 mmol/L [facility] CO2 23 22 - 32 mmol/L [facility] Anion gap 12 2 - 15 mmol/L [facility] BUN 13 6 - 25 mg/dL [facility]) Creatinine 0.73 0.60 - 1.10 mg/dL [facility]) Glucose 99 70 - 199 mg/dL [facility] ([place]) Comment: Interpretive Data Fasting glucose >/= 126 mg/dl is diagnostic for diabetes. Fasting is defined as no caloric intake for at least 8 hours. Fasting glucose between 100 mg/dl to 125 mg/dl is diagnostic of prediabetes. In a patient with classic symptoms of hyperglycemia or hyperglycemic crisis, a random glucose >/= 200 mg/dl is diagnostic for diabetes. In the absence of unequivocal hyperglycemia, results should be confirmed by repeat testing. The classification and Diagnosis of Diabetes Diabetes Care 202; 46: S19-S40. Current interpretive data was last revised 2022. Calcium 9.2 8.5 - 10.3 mg/dL [facility]) Bilirubin, total <0.2 0.1 - 1.2 mg/dL [facility] ([place]) Protein, pl 7.0 6.5 - 8.5 g/dL [facility]) Albumin 4.3 3.5 - 5.0 g/dL [facility] ([place]) Alk phos 44 40 - 130 Units/L [facility] ([place]) ALT 18 7 - 45 Units/L [facility] ([place]) Comment: Hemolysis present. Results may be affected. Moderately Hemolyzed Specimen AST 23 10 - 45 Units/L [facility] ([place]) Comment: Hemolysis present. Results may be affected. Moderately Hemolyzed Specimen Blood 07/14/2024 7:29 PM CDT 07/14/2024 7:41 PM CDT Chele Askew MD LAB BLOOD ORDERABLES Final R esult [facility] ([place]) [address] [facility] [place] [address] * XR Chest 1 Vw Portable (if patient condition/safety warrant portable) (07/14/2024 5:14 PM CDT) Anatomical Region Laterality Modality Body, Chest N/A Computed Radiogr aphy 07/14/2024 5:32 PM CDT Narrative 07/14/2024 5:33 PM CDT EXAM DESCRIPTION: XR CHEST 1 VIEW REASON FOR STUDY: chest pain Pt to ED for c/o constant burning in her chest, heart palpitations and SOB for a few months that worsened in the last few weeks. Pt has echo scheduled for Saturday. Hx of aortic valve stenosis per pt. Current smoker TECHNIQUE: Single frontal radiographic view(s) of the chest. COMPARISON: 05/07/2023 FINDINGS: The heart, mediastinum, and pulmonary vasculature are grossly stable. There are mild atherosclerotic changes of the aorta. There is no definite evidence of a pneumothorax. There is no definite evidence of a pleural effusion. There are mild patchy left basilar airspace opacities. The osseous structures are acutely grossly stable. IMPRESSION: Mild patchy left basilar airspace opacities, which is likely related to subsegmental atelectasis/scarring and less likely developing airspace disease. THIS IS AN ELECTRONICALLY VERIFIED FINAL REPORT 07/14/2024 5:33 PM - Electronically signed by Kolton Rivero D.O. PS: PS Report ID: [id number] Reading Location: [id number] Procedure Note Kolton Rivero, DO - 07/14/2024 EXAM DESCRIPTION: XR CHEST 1 VIEW REASON FOR STUDY: chest pain Pt to ED for c/o constant burning in her chest, heart palpitations andSOB for a few months that worsened in the last few weeks. Pt has echoscheduled for Saturday. Hx of aortic valve stenosis per pt. Current smoker TECHNIQUE: Single frontal radiographic view(s) of the chest. COMPARISON: 05/07/2023 FINDINGS: The heart, mediastinum, and pulmonary vasculature are grossly stable.There are mild atherosclerotic changes of the aorta. There is no definiteevidence of a pneumothorax. There is no definite evidence of a pleural effusion. There are mild patchy left basilar airspace opacities. The osseous structures are acutely grossly stable. IMPRESSION: Mild patchy left basilar airspace opacities, which is likely related to subsegmental atelectasis/scarring and less likely developing airspacedisease. THIS IS AN ELECTRONICALLY VERIFIED FINAL REPORT 07/14/2024 5:33 PM - Electronically signed by Kolton Rivero D.O. PS: PS Report ID: [id number] Reading Location: [id number] Chele Askew MD IMG XR PROCEDURES Final Resu lt * (ABNORMAL) Differential, auto (07/14/2024 5:09 PM CDT) Neutrophil abs 8.14(H) 1.50 - 6.50 K/cumm Imm gran abs 0.04 0.00 - 0.10 K/cumm [facility] Lymphocyte abs 3.01 0.80 - 3.30 K/cumm [facility] ([place]) Monocyte abs 0.74 0.20 - 0.80 K/cumm [facility] ([place]) Eosinophil abs 0.13 0.00 - 0.50 K/cumm [facility] ([place]) Basophil abs 0.10 0.00 - 0.10 K/cumm [facility] ([place]) Neutrophil pct 66.9 % [facility] ([place]) Comment: Interpretive Data Percent cell count reference ranges are not reported, since discordance with absolute values may lead to misinterpretation of CBC data. Current Interpretive Data was last revised on 2017. Imm gran pct 0.3 % [facility] ([place]) Comment: Interpretive Data Percent cell count reference ranges are not reported, since discordance with absolute values may lead to misinterpretation of CBC data. Current Interpretive Data was last revised on 2017. Lymphocyte pct 24.8 % [facility] ([place] Comment: Interpretive Data Percent cell count reference ranges are not reported, since discordance with absolute values may lead to misinterpretation of CBC data. Current Interpretive Data was last revised on 2017. Monocyte pct 6.1 % [facility] ([place] Comment: Interpretive Data Percent cell count reference ranges are not reported, since discordance with absolute values may lead to misinterpretation of CBC data. Current Interpretive Data was last revised on 2017. Eosinophil pct 1.1 % [facility] ([place] Comment: Interpretive Data Percent cell count reference ranges are not reported, since discordance with absolute values may lead to misinterpretation of CBC data. Current Interpretive Data was last revised on 2017. Basophil pct 0.8 % [facility] ([place] Comment: Interpretive Data Percent cell count reference ranges are not reported, since discordance with absolute values may lead to misinterpretation of CBC data. Current Interpretive Data was last revised on 2017. Blood 07/14/2024 5:09 PM CDT 07/14/2024 5:14 PM CDT Chele Askew MD LAB BLOOD ORDERABLES Final R esult [facility] ([place]) [address] [facility] [place] [address] * (ABNORMAL) CBC with auto differential (07/14/2024 5:09 PM CDT) WBC 12.16(H) 3.80 - 9.90 K/cumm Hgb 14.4 11.9 - 15.5 g/dL [facility] Hct 42.8 35.6 - 45.5 % [facility] Plt 365 150 - 400 K/cumm [facility]) MPV 10.5 9.1 - 12.3 fL [facility] RBC 4.53 3.90 - 5.20 M/cumm [facility]) MCV 94.5 81.3 - 96.4 fL [facility] MCH 31.8 27.1 - 33.3 pg [facility]) MCHC 33.6 32.3 - 35.7 g/dL [facility]) RDW CV 15.3(H) 11.1 - 14.9 % [facility] RDW SD 52.7(H) 35.7 - 48.1 fL [facility] NRBC abs 0.00 0.00 - 0.01 K/cumm [facility] Blood Venous blood specimen / Unknown 07/14/2024 5:09 PM CDT 07/14/2024 5:14 PM CDT Chele Askew MD LAB BLOOD ORDERABLES Final R esult [facility] ([place]) [address] [facility] [place] [address] * ECG 12 lead (07/14/2024 5:01 PM CDT) 07/14/2024 5:01 PM CDT Narrative [facility] - 07/15/2024 6:30 AM CDT Vent Rate: 83 bpm RR Interval: 721 msec NH Interval: 127 msec QRS Duration: 86 msec QT Interval: 362 msec QTC Interval: 401 msec P-R-T [place]: 56 - 50 - 29 degrees IMPRESSION: SINUS RHYTHM NORMAL ECG Compared to prior EKG, heart rate has decreased Electronically Signed By: Andrea David MD Chele Askew MD ECG ORDERABLES Final Result [facility] * Screening Mammogram Bilateral W Anuj (06/15/2024 9:49 AM CDT) Anatomical Region Laterality Modality Breast Bilateral Mammography 06/15/2024 9:53 PM CDT Impressions 06/15/2024 9:53 PM CDT There is no mammographic evidence to suggest malignancy. The patient may continue screening mammography as per ACR guidelines. FINAL ASSESSMENT: BI-RADS Category 1: Negative. Electronically signed by: Bridgette Sampson M.D. Narrative 06/15/2024 9:53 PM CDT EXAMINATION: BILATERAL SCREENING MAMMOGRAM WITH TOMOGRAPHY HISTORY: Screening. COMPARISON(S): 2023, 2022, and 2020. TECHNIQUE: Full-field 2D images and digital tomosynthesis images were obtained. CAD was utilized. BREAST PARENCHYMAL COMPOSITION: There are scattered areas of fibroglandular density. FINDINGS: There are no suspicious masses. No suspicious calcifications are seen. There is no unexplained architectural distortion. There is no skin thickening seen. There are no mammographically abnormal lymph nodes seen in the axillae or elsewhere. Self Screening Mammogram IMG MAMMO PROCEDURES Fi nal Result * Pap and High Risk HPV, reflex to Genotyping (04/05/2022 9:16 AM DIGITAL PRODUCTION MANAGER) Thin prep (Pap test) 04/05/2022 9:16 AM DIGITAL PRODUCTION MANAGER 04/05/2022 9:16 AM DIGITAL PRODUCTION MANAGER Narrative PATHOLOGY CH - 04/10/2022 5:01 PM DIGITAL PRODUCTION MANAGER [facility] Department of Pathology [address] [place], [place] [id number] Final Report with Addendum Note to Patients: This report may contain a detailed description of human tissue sent by a health care provider to the laboratory for pathologic evaluation. The content of this report is essential for diagnosis and may provide important critical findings. This information may be unfamiliar to patients to review without a medical professional present. It is advised that the patient review this report in the presence of a health care provider who can answer questions and explain the details. Patient Name: COSMO GEE Address: [address] [place] [address] Gender: F : 1970 (Age: 51) Service: Location: [facility] : [id number] Hospital #: [id number] Patient Type: SPECIMEN Taken: 04/05/2022 Received: 04/05/2022 Accessioned:: 04/06/2022 Reported: 04/10/2022 Physician(s): MD Ele Hinds MD Diagnosis: Source of Specimen: SCREENING THIN PREP IMAGED PAP w/ HPV Specimen Adequacy: - Satisfactory for evaluation; endocervical/transformation zone component present General Category: - Negative for intraepithelial lesion or malignancy ROSI Starks(ASCP)Thuy Joyce M.D. Report Electronically Reviewed and Signed Out By Thuy Joyce M.D. 04/10/2022 17:01:15Addenda: HPV Test Interpretation NEGATIVE for types 16, 18, 31, 33, 35, 39, 45, 51, 52, 56, 58, 59, 66 and 68. Test performed utilizing Gen-Probe Aptima assay. ROSI Starks(ASCP)Report Electronically Reviewed and Signed Out By ROGER StarksASCP) 04/09/2022 12:05:48 Specimen(s) Received: A: SCREENING THIN PREP IMAGED PAP w/ HPV Clinical History: Last Menstrual Period: 07/06/21 Menstrual History: Previous Abnormal Pap: 02/2021 [facility] Clinical History: Normal cervical biopsies 02/2021 The Pap test is a screening test used to aid in the detection of cervical cancer and its precursors. It should not be the sole means by which malignant and premalignant lesions are diagnosed. Both false negative and false positive results may occur. It also has poor sensitivity for the detection of endometrial lesions and should not be used to evaluate suspected endometrial abnormalities. For these reasons it is most important to obtain Pap tests at regular intervals. The performance characteristics of some immunohistochemical stains, fluorescence in-situ hybridization tests and immunophenotyping by flow cytometry cited in this report (if any) were determined by the Surgical Pathology Department at [facility] as part of an ongoing quality technician fiberglass program and in compliance with federally mandated regulations drawn from the Clinical Laboratory Improvement Act of 1988 (CLIA '88). Some of these tests rely on the use of analyte specific reagents and are subject to specific labeling requirements by the US Food and Drug Administration. Such diagnostic tests may only be performed in a facility that is certified by the Department of Health and Human Services as a high complexity laboratory under CLIA '88. The FDA has determined that such clearance or approval is not necessary. This test is used for clinical purposes. It should not be regarded as investigational or for research. Nevertheless, federal rules concerning the medical use of analyte specific reagents require that the following disclaimer be attached to the report: This test was developed and its performance characteristics determined by the Surgical Pathology Department [facility]. It has not been cleared or approved by the U. S. Food and Drug Administration. Ele Méndez MD LAB CYTOLOGY ORDERABL ES Final Result PATHOLOGY [id number] [place] [address] from Last 3 Months or Most Recently Relevant to Health Maintenance Insurance [facility] [employer] [place] [facility] CHO[facility] PLUS Care Teams Cook Pie Relationship Specialty Start Date End Date Jeremy Roth MD [address] [place] [id number] PCP - General 08/05/16
--- OUTSIDE RECORDS SUMMARY | 2024-09-05 13:01 | XMS_ITS | Referral Summary ---
Author Organization [facility] Address [address] [place] [phone] Care Team Providers Care Aix Architect Name Role Phone Jeremy Roth MD Primary Care Provider [phone] Encounters Date Type Department Care Team Description 09/03/2024 10:30 AM CDT Office Visit [facility] at [address] [phone] Xavier Cancino MD Aortic valve disorder (Primary Dx); Paroxysmal atrial fibrillation (HCC) 08/31/2024 Orders Only [facility] [address] [phone] Jeremy Roth MD 08/11/2024 Orders Only [facility] Primary Care at [address] [phone] Jeremy Roth MD 08/11/2024 Telephone [facility] Server Manager at [address] [place] [phone] Freda Kennedy MA 08/10/2024 Telephone [facility] Manager at [address] [place] [phone] Pola Enrique MA 08/10/2024 Orders Only [facility] [address] [phone] Jeremy Roth MD 08/10/2024 Nurse Triage [facility] [address] [phone] Jeremy Roth MD 08/05/2024 Results Follow-Up [facility] [address] [place] [phone] Xavier Cancino MD Transthoracic Echo (TTE) Complete W Doppler/CF 08/03/2024 10:00 AM CDT Ancillary Procedure [facility] [id number] [place] [phone] Aortic valvular disorder 07/16/2024 8:30 AM CDT Office Visit [facility] [address] [phone] Shelly Bennett NP Acute non-recurrent pansinusitis (Primary Dx); Tobacco dependence syndrome; Hypertension, essential; Anxiety and depression; Aortic valve disorder 07/14/2024 7:06 PM CDT - 07/14/2024 9:55 PM CDT Emergency [facility] [address] [place] [address] Chele Askew MD Esophagitis (Primary Dx); Anxiety Discharge Disposition: Discharge to home or self care 06/16/2024 10:20 AM CDT Office Visit [facility] [address] [place] [phone] Ele Méndez MD Encounter for gynecological examination without abnormal finding (Primary Dx) 06/15/2024 9:36 AM CDT - 06/15/2024 11:59 PM CDT Hospital Encounter [facility] [address] [place] [address] Screening mammogram, encounter for Discharge Disposition: Discharge to home or self care from Last 3 Months Allergies Active Allergy Reactions Criticality Noted Date [...] 02/17/2024 Assessment & Plan (02/17/2024 10:56 AM VEHICLE DELIVERY WORKER): Encourage colon cancer screneing. WIll montior ersponse. Contusion of right thumb without damage to nail 02/17/2024 Assessment & Plan (02/17/2024 10:57 AM VEHICLE DELIVERY WORKER): Has seen Dr. Greer's team at [facility] for trigger finger on right hand. Now with sypmtoms related to base of thumb and would benefit from re-engaging with [facility] Escalante and Dr. Greer. WIll monitor response. Hyperlipidemia 02/17/2024 Assessment & Plan (02/17/2024 10:58 AM VEHICLE DELIVERY WORKER): Stable on statin therapy and will continue to follow response. Reduce atorvastatin and intoduce zetia and will montior respnose. Annual physical exam 02/17/2024 Assessment & Plan (02/17/2024 10:59 AM VEHICLE DELIVERY WORKER): Focus of exam is prevnetative in nature. [...] ordered. [facility] Aware that insurance needs to authorize prior to her scheduling. msg to planned giving officerYUMIKO Alfredo re: need for MRI auth. [...] flags. Assessment & Plan (05/13/2019 2:58 PM VEHICLE DELIVERY WORKER): Will go to lab today even though not fasting for repeat lipid. Last lipid panel: 02/06/19 JN=862 HN=997 HDL=31 PKL=310 TC/HDL=10 02/08/17 started atorvastatin 40mg daily. Acute [...] days. Assessment & Plan (05/13/2019 2:54 PM VEHICLE DELIVERY WORKER): To start antihistamine & plain mucinex. Complete [...] amlodipine. Assessment & Plan (02/17/2024 10:56 AM VEHICLE DELIVERY WORKER): Stable on amlodipine and will follow response. [...] received. Assessment & Plan (05/13/2019 2:56 PM VEHICLE DELIVERY WORKER): Blood Pressure Follow-up: Lifestyle modifications education provided [...] response. Assessment & Plan (05/13/2019 2:53 PM VEHICLE DELIVERY WORKER): Continues on venlafaxine 225mg daily. Has increased [...] & Plan (09/05/2018 10:33 AM CDT): Discussed [facility] to get out of her house. She [...] NOS Assessment & Plan (02/17/2024 10:56 AM VEHICLE DELIVERY WORKER): Clinically euthyroid. Continue to montior TFTs and [...] cessation. Assessment & Plan (02/17/2024 10:57 AM VEHICLE DELIVERY WORKER): PRecontemplative. Discussed LDCT lung cancer screening and declines. Assessment & Plan (11/20/2019 5:51 PM CDT): Precontemplative. Encouraged complete smoking cessation. Discussed different types of medications & qzit-gpv-jrqowhc aides to help with cessation. Assessment & Plan (10/22/2019 4:04 PM CDT): Precontemplative. Encouraged complete smoking cessation. Discussed different types of medications & upnj-xtw-nxevstp aides to help with cessation. Assessment & Plan (05/13/2019 2:52 PM VEHICLE DELIVERY WORKER): Precontemplative. Encouraged complete smoking cessation. Discussed different types of medications & hypy-vmn-oqyrdvd aides to help with cessation. Assessment & Plan (01/15/2019 9:25 AM CDT): Precontemplative. Encouraged complete smoking cessation. Discussed different types of medications & hlrl-jut-igzibsa aides to help with cessation. Assessment & Plan (10/14/2018 10:04 AM CDT): Precontemplative. Encouraged complete smoking cessation. Discussed different types of medications & nnav-hxj-luquyis aides to help with cessation. Assessment & Plan (09/05/2018 10:08 AM CDT): Tobacco use is unchanged. Smoking cessation counseling was provided. Tobacco use will be reassessed 5-6 weeks. Precontemplative. Encouraged complete smoking cessation. Discussed different types of medications & uswt-fde-bpurftc aides to help with cessation. Aortic valve disorder 08/08/2013 Overview (06/29/2016): AORTIC VALVE DISORDER Assessment & Plan (07/16/2024 9:35 AM CDT): Clinically stable. She is following with Cardiology. Red flags reviewed. Assessment & Plan (02/17/2024 10:57 AM VEHICLE DELIVERY WORKER): COntinue surveillance with cardiology and will montior response. Heart murmur 08/26/2012 Overview (06/29/2016): Murmur, heart Resolved Problems Problem Noted Date Diagnosed Date Resolved Date Sacroiliitis 04/01/2020 02/17/2024 BMI 26.0-26.9,adult 11/20/2019 01/23/20 22 Assessment & Plan (11/20/2019 5:53 PM CDT): Discussed healthy diet and importance of regular physical activity. BMI is acceptable for this patient. BMI 27.0-27.9,adult 10/22/2019 11/20/19 Assessment & Plan (10/22/2019 4:03 PM CDT): Discussed healthy diet and importance of regular physical activity. BMI is acceptable for this patient. BMI 26.0-26.9,adult 05/12/2019 10/22/19 Assessment & Plan (05/13/2019 2:53 PM VEHICLE DELIVERY WORKER): Has lost 10# d/t stress. Discussed healthy diet and importance of regular physical activity. BMI is acceptable for this patient. Flu-like symptoms 05/12/2019 01/22/2022 Assessment & Plan (05/13/2019 2:54 PM VEHICLE DELIVERY WORKER): NEGATIVE flu a/b swab in office. Encounter for screening for lipoid disorders 9 05/13/2019 BMI 27.0-27.9,adult 09/05/2018 05/12/19 20 Assessment & Plan (01/15/2019 9:26 AM CDT): Discussed healthy diet and importance of regular physical activity. Assessment & Plan (09/05/2018 10:09 AM CDT): BMI is acceptable for this patient. Ear infection 08/27/2016 05/13/2019 Acute diffuse otitis externa of both ears 08/27/2016 05/13/2019 Immunizations Immunization Administration Dates Next Due Influenza, [...] Refused),03/25/2017(Deferred: Patient Refused),03/25/2017(Deferred: Patient Refused),03/26/2016(Deferred: Patient Refused) Social History Tobacco Use Types Packs/Day Years [...] on file Legal Sex Female 12:40 PM VEHICLE DELIVERY WORKER Gender Identity Not on file Sexual Orientation [...] 09/03/2024 10:47 AM CDT Plan of Treatment Not on file Goals Goal Patient Goal Type Associated Problems [...] REFLEX TO GENOTYPING Routine 04/05/2022 9:16 AM VEHICLE DELIVERY WORKER Screening for malignant neoplasm of the cervix [...] AM CDT Narrative 08/03/2024 4:22 PM CDT Clinton Server Manager- [facility] [address] [place] [address] Echocardiogram Report Patient Name: COSMO GEE M [...] regurgitation. Electronically Signed By: Jorge Pearl MD, [facility] 08/03/2024 4:22:04 PM CDT Procedure Note Jorge Pearl MD - 08/03/2024 Clinton Server Manager- [facility] [address] [facility] [place] [address] Echocardiogram Report Patient Name: COSMO GEE M [...] regurgitation. Electronically Signed By: Jorge Pearl MD, [facility] 08/03/2024 4:22:04 PM CDT us Xavier Cancino MD CV ECHO PROCEDURES Fin al Result * Troponin T high-sensitivity series (baseline, 2hr, 4hr, 6hr) (07/14/2024 8:49 PM CDT) Trop T hs <6 <=14 ng/L Comment: Interpretive Data For further hscTnT resources including the diagnostic algorithm and an aid in interpretation, copy and paste this link: https://nrl.[employer].org/show/hsTrop Current Interpretive Data last revised 2020. Blood 07/14/2024 8:49 PM CDT 07/14/2024 9:15 PM CDT Chele Askew MD LAB BLOOD ORDERABLES Final R esult Performing Organization Address City/[facility]/ZIP Co de Phone Number [facility]) [address] [place] [address] [place] [address] * Troponin T high-sensitivity series (baseline, 2hr, 4hr, 6hr) (07/14/2024 7:29 PM CDT) Pathologist [facility] Trop T hs See Comment <=14 Comment: cannot perform test due to hemolysis Interpretive Data For further hscTnT resources including the diagnostic algorithm and an aid in interpretation, copy and paste this link: https://nrl.[employer].org/show/hsTrop Current Interpretive Data last revised 2020. Blood 07/14/2024 7:29 PM CDT 07/14/2024 7:41 PM CDT Chele Askew MD LAB BLOOD ORDERABLES Final R esult [facility] ([place]) 1 [facility] [place] [address] * eGFR (07/14/2024 7:29 PM CDT) [facility] eGFR >90 >=60 mL/min/1. 73 m2 Comment: [...] MD LAB BLOOD ORDERABLES Final R esult [facility] ([place]) 1 [facility] Department [place] [address] * Comprehensive metabolic panel (07/14/2024 7:29 PM CDT) Sodium 138 135 - 145 mmol/L Potassium, pl 4.3 3.3 - 4.9 mmol/L [facility] ([place] Comment:Moderately Hemolyzed Specimen. Results may be affected. Chloride 103 97 - 110 mmol/L [facility] ([place]) CO2 23 22 - 32 mmol/L [facility] ([place]) Anion gap 12 2 - 15 mmol/L [facility] ([place]) BUN 13 6 - 25 mg/dL [facility] ([place]) Creatinine 0.73 0.60 - 1.10 [...] classification and Diagnosis of Diabetes Diabetes Care 2021; 46: S19-S40. Current interpretive data was last [...] R esult [facility] ([place]) 1 [facility] [place] [address] * XR Chest 1 Vw Portable (if [...] Kolton Rivero D.O. PS: PS Report ID: [id number] Reading Location: [id number] Procedure Note Kolton Rivero, DO - 07/14/2024 [...] Kolton Rivero D.O. PS: PS Report ID: [id number] Reading Location: [id number] us Chele Askew MD IMG XR PROCEDURES Final [...] R esult [facility] ([place]) [address] [facility] [place] [address] * (ABNORMAL) CBC with auto differential (07/14/2024 [...] RDW SD 52.7(H) 35.7 - 48.1 fL [facility] ([place]) NRBC abs 0.00 0.00 - 0.01 K/cumm [facility] ([place]) Blood Venous blood specimen / Unknown 07/14/2024 5:09 PM CDT 07/14/2024 5:14 PM CDT Chele Askew MD LAB BLOOD ORDERABLES Final R esult [facility] ([place]) 1 [facility] [place] [address] * ECG 12 lead (07/14/2024 5:01 PM CDT) 07/14/2024 5:01 PM CDT Narrative [facility] - 07/15/2024 6:30 AM CDT Vent Rate: 83 bpm RR Interval: 721 msec W[place] Interval: 127 msec QRS Duration: 86 msec QT Interval: 362 msec QTC Interval: 401 msec P-R-T [place]: 56 - 50 - 29 degrees IMPRESSION: SINUS RHYTHM NORMAL ECG Compared to prior EKG, heart rate has decreased Electronically Signed By: Andrea David MD Chele Askew MD ECG ORDERABLES Final Result [facility] * Screening Mammogram Bilateral W Anuj (06/15/2024 [...] HPV, reflex to Genotyping (04/05/2022 9:16 AM VEHICLE DELIVERY WORKER) Thin prep (Pap test) 04/05/2022 9:16 AM VEHICLE DELIVERY WORKER 04/05/2022 9:16 AM VEHICLE DELIVERY WORKER Narrative PATHOLOGY CH - 04/10/2022 5:01 PM VEHICLE DELIVERY WORKER [facility] Department of Pathology [address] [place] [address] Final Report with Addendum Note to Patients: [...] the details. Patient Name: COSMO GEE Address: [address] [place] [address] Gender: F : 1970 (Age: 51) Service: Location: N : [id number] [facility] #: [id number] Patient Type: SPECIMEN Taken: 04/05/2022 Received: 04/05/2022 [...] determined by the Surgical Pathology Department at [facility] as part of an ongoing software quality assurance engineer program and in compliance with federally mandated [...] characteristics determined by the Surgical Pathology Department [facility]. It has not been cleared or approved by the U. S. Food and Drug Administration. Ele Méndez MD LAB CYTOLOGY ORDERABL ES Final Result PATHOLOGY [address] [place] [address] from Last 3 Months or Most Recently Relevant to Health Maintenance Insurance [facility] MEDICAID AgentPair [place] AgentPair [place] [facility] [place] [address] Care Teams Aix Architect Relationship Specialty Start Date End Date Jeremy Roth MD [address] [place] [address] PCP - General 08/05/16
[2024-09-05 13:06] VITALS: BP 176/73; PULSE 61; RESP 20; TEMP 36.8; O2SAT 100
--- NOTE | 2024-09-05 13:36 | ED.URI ---
HPI - URI/Sore Throat General Chief Complaint: Upper Respiratory Infection Stated Complaint: post nasal drip, hard to swallow, facial pain Time Seen by Provider: 09/05/24 13:20 Source: patient and RN notes reviewed Mode of arrival: ambulatory Limitations: no limitations History of Present Illness HPI Narrative: 53-year-old female presents Express Care complaining of upper respiratory symptoms for 2 weeks. Patient reports cough, sinus pressure, congestion, and sore throat. Patient reports having thick and yellow sputum. Patient does report some chest pain when she coughs. However she has no chest pain at rest or with exertion. Patient also reports that her lymph nodes are tender around her neck. Patient denies any shortness of breath or wheezing. Patient has been doing Flonase and drinking plenty of fluids without relief. Patient has a history of a aortic stenosis is supposed to have her valve replaced soon. Related Data Home Medications ?Medication ?Instructions ?Recorded ?Confirmed ?Last Taken ?Type albuterol sulfate 90 mcg/actuation inhalation 09/05/24 Unknown History aerosol inhaler amlodipine 5 mg tablet mg 09/05/24 Unknown History atorvastatin 40 mg tablet mg 09/05/24 Unknown History buspirone 10 mg tablet mg 09/05/24 Unknown History ezetimibe 10 mg tablet mg 09/05/24 Unknown History levothyroxine 88 mcg tablet mcg 09/05/24 Unknown History montelukast 10 mg tablet mg 09/05/24 Unknown History nicotine 14 mg/24 hr daily 09/05/24 Unknown History transdermal patch Allergies Allergy/AdvReac Type Severity Reaction Status Date / Time ciprofloxacin Allergy Unknown Hives / Verified 09/05/24 13:14 Red Face lisinopril Allergy Unknown Unknown Verified 09/05/24 13:14 Review of Systems Review of Systems: CONSTITUTIONAL: Denies fever, chills, body aches, or sweats. EYES: Denies visual changes, redness, or discharge. ENT: Positive for congestion, sore throat. Negative for rhinorrhea or otalgia. CARDIOVASCULAR: Denies chest pain at rest or with exertion, palpitations, or edema. RESPIRATORY: Positive for cough. Negative for dyspnea or wheezing. GASTROINTESTINAL: Denies abdominal pain, nausea, vomiting, or diarrhea. GENITOURINARY: Denies dysuria or hematuria. SKIN: Denies rash or itching. MUSCULOSKELETAL: Denies back pain, joint pain, or myalgia. NEUROLOGIC: Denies headache, numbness, or weakness. PSYCHIATRIC: Denies anxiety or depression. All other systems reviewed are negative, except as documented in HPI. [facility] Past Medical History Medical History Depression Hypothyroidism Seasonal allergies Hypertension Surgical History Surgical History H/O tubal ligation Social History Social History Smoking status: Current every day smoker Comments At the time of my signature, I reviewed and agree with the nursing past medical, surgical, social, and family history. There is no relevant family history pertinent to the patient complaint. Exam Narrative: GENERAL: This is a well-nourished, well-developed adult, in no apparent distress. They are non ill-appearing, nontoxic appearing. HEAD: normocephalic, atraumatic. EYES: Sclera clear/white. Vision is grossly intact. Conjunctiva normal bilaterally. Extraocular movements intact. EARS: External ears normal, auditory canals clear and without drainage, TMs without erythema or perforation. Hearing grossly intact. NOSE: External nose normal with no obvious nasal discharge, nasal turbinates erythematous, no rhinorrhea. Maxillary and frontal sinus tenderness to palpation. THROAT: Mucous membranes moist, posterior pharynx erythemic about swelling, without exudate. Uvula is midline. Postnasal drip present. NECK: Neck supple, tender with mild lymphadenopathy, no masses or thyromegaly. CARDIOVASCULAR: Regular rate and rhythm without gallops, or rubs. Normal S1-S2. Mid systolic murmur present. RESPIRATORY: Clear to auscultation. Breath sounds equal bilaterally. No wheezes, rales, or rhonchi. Respiratory rate normal, respiratory effort nonlabored, no respiratory distress SKIN: warm, Dry, intact with no suspicious lesions or rash, good texture and turgor. NEURO: awake, alert, and oriented to person, place and time. There were no obvious focal neurologic abnormalities. EXTREMITIES: No joint tenderness, effusion, or edema noted. BACK: Nontender without deformity. Course Course Emergency Course: Portions of this record may have been created with voice recognition software Level of Care: Express Care Visit Vital Signs Vital signs: Vital Signs Temperature 98.3 F 09/05/24 13:06 Pulse Rate 61 09/05/24 13:06 Respiratory Rate 20 09/05/24 13:06 Blood Pressure 176/73 H 09/05/24 13:06 Pulse Oximetry 100 09/05/24 13:06 Oxygen Delivery Room Air 09/05/24 13:06 Temperature 98.3 F 09/05/24 13:06 Pulse Rate 61 09/05/24 13:06 Respiratory Rate 20 09/05/24 13:06 Blood Pressure 176/73 H 09/05/24 13:06 Pulse Oximetry 100 09/05/24 13:06 Oxygen Delivery Room Air 09/05/24 13:06 MDM - URI/Sore Throat MDM Narrative Medical decision making narrative: Given patient's like the symptoms likely she has bacterial sinusitis. Will treat empirically with Augmentin. Discussed physical exam findings. Advised supportive measures and signs/symptoms to go to the ER. Pt is appropriate for outpt treatment and f/u. Differential Diagnosis Differential diagnosis: Likely upper respiratory infection, sinusitis, viral infection and bronchitis Discharge Plan Discharge Clinical Impression: Sinusitis Qualifiers: Sinusitis location: unspecified location Chronicity: acute Recurrence: non-recurrent Qualified Code(s): J01.90 - Acute sinusitis, unspecified Patient Disposition: Home Condition: Stable Instructions: Antibiotic Form, Sinusitis (ED) Additional Instructions: Take the antibiotics as directed and complete the course even if you start to feel better. You may use a Neti pot saline rinse 3 times a day with lukewarm distilled water Continue to take Tylenol or Motrin for pain. Use a humidifier or vaporizer at night. Drink plenty of water. 8-10 glasses per day. Use flonase 2 times per day for 5 days then as needed Take mucinex 2 times per day and be sure to take with 8oz of water. Follow up with Primary provider in 3-5 days Please go to the ER if he develops any difficulty breathing, worsening symptoms, or any other concerns Patient Language: Russian Prescriptions: New amoxicillin-pot clavulanate 875-125 mg tablet 1 tablet PO Q12H 7 Days Qty: 14 0RF No Action atorvastatin 40 mg tablet nicotine 14 mg/24 hr patch 24 hour amlodipine 5 mg tablet levothyroxine 88 mcg tablet buspirone 10 mg tablet montelukast 10 mg tablet albuterol sulfate 90 mcg/actuation HFA aerosol inhaler INHALATION ezetimibe 10 mg tablet Follow-up/Referrals: Harms,Jeremy Oneal M.D. [Primary Care Provider] - Time of Disposition: 13:34
== END 2024-09-05 13:41 | disposition home or self-care (01) ==
PROVIDERS: PCP Family Medicine
DX: J01.90 Acute sinusitis, unspecified (principal); F17.200 Nicotine dependence, unspecified, uncomplicated; I10 Essential (primary) hypertension; E03.9 Hypothyroidism, unspecified; I35.0 Nonrheumatic aortic (valve) stenosis
CPT/HCPCS: 99213; G0463